=== PATIENT | male | born 1960 | race Caucasian/White ===

== ENCOUNTER 2016-07-01 12:10 | Emergency (ER) | payer MEDICARE, OTHER ==
[~2016-07-01 12:10] MED LIST: CIPRO PO; LASIX PO; NYSTATIN-TRIAMC15 G1 TP; OXYCONTIN PO; PYRIDIUM PO
== END 2016-07-01 12:20 | disposition home or self-care (01) ==
LOC: CED 12:10
DX: G89.29 Other chronic pain (principal); M54.5 Low back pain; F17.210 Nicotine dependence, cigarettes, uncomplicated; Z90.49 Acquired absence of other specified parts of digestive tract
CPT/HCPCS: 96372; 99283; J1885

== ENCOUNTER 2016-07-23 12:35 | Emergency (ER) | payer MEDICARE, OTHER ==
--- NOTE | ~2016-07-23 | CT2 ---
[facility] A Service of [facility] / [facility] RADIOLOGY TEXT RESULTS PATIENT: ALESSANDRO NUÑEZ LOCATION: [facility] : 64 UNIT #: [id number] AGE: [address]: Marino Kwan MD SEX: M ORDER DR: [id number] [facility] [address] [place], [place] [address] [id number] E MR#: [id number] #: [id number] NAME: ALESSANDRO NUÑEZ. : 1960 SEX: M STUDY DATE/TIME: 07/23/2016 15:18 UNIT: [facility] ROOM: STUDY DESCRIPTION: CT Abd and Pelv W Cont Attending Physician: Marino Kwan M.D. Ordering Physician: Marino Kwan M.D. Primary Care Physician: Primary Care Physician No MEDICAL IMAGING REPORT This report is preliminary unless electronic signature is present EXAM Abdomen and pelvis CT, 07/23/2016 INDICATION Abdominal pain and back pain that started yesterday. Elevated white blood cell count today. TECHNIQUE Axial images were obtained through the abdomen and pelvis following oral and IV contrast administration. Multiplanar reformats were obtained. Comparison made with 05/25/2014. This CT exam was performed with one or more of the following radiation dose reduction techniques: automatic exposure control, adjustment of mA and/or kV according to patient size, and iterative reconstruction. FINDINGS ABDOMEN: Lung bases are clear. Gallbladder is surgically absent. No biliary obstruction. There is a left renal cyst. The unenhanced solid organs are otherwise within normal limits. No adenopathy or free fluid. The GI tract is normal. PELVIS: The urinary bladder is normal. The appendix is normal. The remainder of the GI tract is normal as well. No free fluid is seen. There appear to be bilateral L3 pars defects with subtle grade 1 spondylolisthesis at L3-4. IMPRESSION 1. No acute findings in the abdomen or pelvis. 2. The GI tract including the appendix is normal. 3. The kidneys are normal and nonobstructed. Incidental note is made of a left renal cyst. [facility] A Service of [facility] / [facility] RADIOLOGY TEXT RESULTS PATIENT: ALESSANDRO NUÑEZ LOCATION: [facility] : 64 UNIT #: [id number] AGE: [address]: Marino Kwan MD SEX: M ORDER DR: 4. Cholecystectomy without biliary obstruction. 5. Bilateral L3 pars defects with subtle spondylolisthesis at L3-4. Dictated by... Chano Guzman Jr., M.D. THIS IS AN ELECTRONICALLY VERIFIED REPORT Chano Guzman Jr., M.D. at 07/23/2016 10:02 PM MARGARET/kal TD: 07/23/2016 21:36 JOB #: [id number] MEDICAL IMAGING REPORT Page 1 of 1 COPY
[2016-07-23 13:43] LABS: BASOPHIL# 0.1 X10e3 (0-0.3); BASOPHIL% 0.6 % (0-2.5); EOSINOPHIL# 0.2 X10e3 (0-0.7); EOSINOPHIL% 1.6 % (0.0-7.0); HEMATOCRIT 49.5 % (38.0-50.0); HEMOGLOBIN 16.2 gm/dL (13.0-16.0); LYMPHOCYTE# 2.1 X10e3 (1.0-3.5); LYMPHOCYTE% 18.3 % (17.0-45.0); MEAN CELL VOLUME 88.6 FL (83-96); MEAN CORPUSCULAR HGB CONC 32.7 g/dL (30-36); MEAN PLATELET VOLUME 9.6 FL (6.5-11.5); MONOCYTE# 0.7 X10e3 (0-1.0); MONOCYTE% 6.1 % (3.0-12.0); NEUTROPHIL# 8.4 X10e3 (1.5-7.1); NEUTROPHIL% 73.4 % (40-75); PLATELET COUNT 252 X10e3 (140-420); RED BLOOD COUNT 5.59 X10e (3.90-5.60); RED CELL DISTRIBUTION WIDTH 16.6 % (11.0-15.5); WHITE BLOOD COUNT 11.5 X10e3 (4.0-10.5)
[2016-07-23 13:44] LABS: DIFF IND NO
[2016-07-23 14:46] LABS: BILIRUBIN, DIRECT 0.1 mg/dL (0.0-0.2); BILIRUBIN,INDIRECT 0.3 mg/dL (0.0-0.9); BILIRUBIN,TOTAL 0.4 mg/dL (0.2-2.0); BUN/CREATININE RATIO 13.33; CALCIUM SERUM 9.2 mg/dL (8.4-10.2); CREATININE SERUM 0.9 mg/dL (0.6-1.4); GLOM FILT RATE Estimated 96.5 mL/min (>60); PROTEIN TOTAL SERUM 7.6 g/dL (6.0-8.3)
[2016-07-23 14:50] LABS: URINE SOURCE CLEAN CATCH
[2016-07-23 14:56] LABS: URINE APPEARANCE CLEAR; URINE BILIRUBIN NEG (NEG); URINE BLOOD NEG (NEG); URINE COLOR YELLOW; URINE GLUCOSE NEG (NEG); URINE KETONE NEG (NEG); URINE LEUKOCYTE ESTERASE NEG (NEG); URINE NITRATE NEG (NEG); URINE PROTEIN NEG (NEG); URINE SPECIFIC GRAVITY 1.014 (1.003-1.035)
[2016-07-23 15:02] LABS: CULTURE INDICATED? NO
== END 2016-07-23 16:34 | disposition home or self-care (01) ==
LOC: CED 12:35
PROVIDERS: Emergency Medicine
DX: R39.11 Hesitancy of micturition (principal); M54.5 Low back pain; G89.29 Other chronic pain; J44.9 Chronic obstructive pulmonary disease, unspecified; F17.210 Nicotine dependence, cigarettes, uncomplicated; Z90.49 Acquired absence of other specified parts of digestive tract; Z87.442 Personal history of urinary calculi
CPT/HCPCS: 36415; 74177; 80048; 80076; 81003; 82150; 83690; 85025; 96374; 96375; 99284; J2270; J2405; Q9967